=== PATIENT | female | born 1950 | race Caucasian/White ===

== ENCOUNTER 2017-02-05 08:53 | Emergency (ER) | payer OTHER ==
[~2017-02-05] VITALS: Ht 177.8 cm; Wt 79.8 kg
[~2017-02-05 08:53] MED LIST: AMOX1TAB12 PO; AMOXICILLIN500 MG PO; CALCITRIOL0.25 MCG; CELEBREX100 MG PO; DIOVAN320 MG; INTESTINEX680 MG PO; KETO10TA2 PO; METFORMIN HCL500 MG; MOTION SICKNESS25 M1 PO; PARAFON FORTE500 MG PO; SEPTRA DS TABLE1 TAB PO; SYNTHROID50 MCG PO; TRELSTAR; TRICOR48 MG; VITAMIN D1000 UNIT; ZANTAC150 MG PO
[2017-02-05] MEDS ORDERED: VITAMIN D1000 UNI1 (09:27)
[2017-02-05] MEDS ORDERED: CELEBREX200MG PO (12:15)
== END 2017-02-05 12:35 | disposition home or self-care (01) ==
LOC: ER 08:53
DX: R51 Headache (principal); S00.03XS Contusion of scalp, sequela; S10.83XS Contusion of other specified part of neck, sequela; W18.09XS Striking against other object with subsequent fall, sequela

== ENCOUNTER 2018-01-24 09:58 | Emergency (ER) | payer OTHER ==
[~2018-01-24] VITALS: Ht 177.8 cm; Wt 83.9 kg
[~2018-01-24 09:58] MED LIST changes: +CELEBREX200MG PO; +VITAMIN D1000 UNI1
== END 2018-01-24 11:48 | disposition home or self-care (01) ==
LOC: ER 09:58
DX: I16.1 Hypertensive emergency (principal); I10 Essential (primary) hypertension

== ENCOUNTER 2022-01-14 15:11 | Emergency (ER) | payer OTHER ==
[~2022-01-14] VITALS: Ht 177.8 cm; Wt 89.4 kg
[2022-01-14] MEDS ORDERED: CARBIDOPA-LEVO1 EA11 NGT (16:10)
[2022-01-14] MEDS ORDERED: GABAPENTIN400 MG PO (16:11)
[2022-01-14] MEDS ORDERED: DULOXETINE HCL30 MG PO (16:11)
[2022-01-14] MEDS ORDERED: FAMOTIDINE40 MG PO (16:12)
[2022-01-14] MEDS ORDERED: OMEPRAZOLE MAGN20 MG PO (23:53)
[2022-01-14] MEDS ORDERED: DICY20TA PO (23:53)
== END 2022-01-14 23:59 | disposition home or self-care (01) ==
LOC: ER 15:11
DX: R10.84 Generalized abdominal pain (principal)